=== PATIENT | male | born 1965 | race Caucasian/White ===

== ENCOUNTER 2024-12-08 11:03 | Inpatient (IN) | payer BC ==
[2024-12-08 12:49] VITALS: BMI 39.9
[2024-12-08] MEDS ORDERED: Melatonin 3 MG TAB PO PRN (12:56)
[2024-12-08] MEDS ORDERED: Ketorolac Tromethamine 30 MG (1 mL) VIAL IVP PRN (12:56)
[2024-12-08] MEDS ORDERED: Acetaminophen 325 MG TAB PO PRN (12:56)
[2024-12-08] MEDS ORDERED: Ondansetron PF 4 MG/2 ML Vial IVP PRN (12:56)
[2024-12-08] MEDS ORDERED: PROPOFOL 20 ML ONE (13:09)
[2024-12-08] MEDS ORDERED: Lidocaine 1% PF 5 ML VIAL ONE (13:12)
[2024-12-08] MEDS ORDERED: LevoFLOXacin D5W 500 mg (100 mL) BAG ONE (13:40)
[2024-12-08] MEDS ORDERED: Rocuronium Bromide 10 MG/ML (10ML VIAL) ONE (13:54)
[2024-12-08] MEDS ORDERED: SUCCINYLCHOLINE/SOD CL,ISO/PF 200 MG/10 ML SYRINGE FS ONE (14:32)
[2024-12-08] MEDS ORDERED: Ondansetron PF 4 MG/2 ML Vial ONE (14:32)
[2024-12-08] MEDS ORDERED: SUGAMMADEX SODIUM 200 MG/2 ML VIAL ONE ×2 (14:32→14:39)
[2024-12-08] MEDS ORDERED: Acetaminophen 500 MG TAB PO PRN (14:43)
[2024-12-08] MEDS ORDERED: HYDROcodone/Acetaminophen 5/325 mg Tablet PO PRN (14:43)
[2024-12-08] MEDS ORDERED: Mag-Al 1200 mg/1200 mg/30 ML UDCUP PO PRN (14:43)
[2024-12-08] MEDS ORDERED: Oxybutynin 5 MG TAB PO PRN (14:45)
[2024-12-08 17:34] LABS: INR-International Normal Ratio 1.1; PTT 28.4 sec (22.9-36.1); Prothrombin Time 14.2 sec (12.0-14.7)
[2024-12-08] MEDS: Famotidine 20 MG TAB PO SCH (20:27)
[2024-12-08] MEDS: HYDROcodone/Acetaminophen 5/325 mg Tablet PO PRN (21:59)
[2024-12-09] MEDS: LevoFLOXacin 500 mg/D5W 500 MG in Premix 1 BAG IVPB SCH (05:16)
[2024-12-09 05:42] LABS: #Basophils 0.04 10x3/uL (0.0-0.2); #Eosinophils 0.18 10x3/uL (0.0-0.7); #Monocytes 0.76 10x3/uL (0.11-0.59); #Neutrophils 4.73 10x3/uL (1.40-6.50); %Basophils 0.5 % (0.0-1.0); %Eosinophils 2.5 % (0.0-10.0); %Lymphocytes 21.7 % (21.0-51.0); %Monocytes 10.4 % (0.0-10.0); %Neutrophils 64.6 % (42.0-75.0); Hematocrit 37.2 % (42.0-52.0); Hemoglobin 12.5 g/dL (14.0-18.0); Mean Corpuscular Hemoglobin 31.5 pg (27.0-31.0); Mean Corpuscular Volume 93.7 fL (78.0-98.0); Platelet Count 199 10x3/uL (130-400); Red Blood Cell (RBC) Count 3.97 mill/uL (4.70-6.10); White Blood Cell (WBC) Count 7.32 10x3/uL (4.8-10.8)
[2024-12-09 05:52] LABS: Anion Gap 10 mmol/L (10-20); BUN (Urea Nitrogen) 18 mg/dL (8.4-25.7); Calc. Creatinine Clearance 100 mL/min (70-130); Calcium 8.1 mg/dL (7.8-10.44); Carbon Dioxide 26 mmol/L (22-29); Chloride 107 mmol/L (98-107); Glucose 115 mg/dL (70-105); Potassium 3.7 mmol/L (3.5-5.1); Sodium 139 mmol/L (136-145)
[2024-12-09] MEDS: Lisinopril 20 MG TAB PO SCH (07:51)
[2024-12-09 13:12] VITALS: BP 120/83; TEMP 98
[2024-12-09 16:43] LABS: Bacteria/HPF None Seen HPF (None Seen); Glucose, Urine (Dipstick) Normal (Negative); Leukocyte Negative Leu/uL (Negative); Protein, Urine (Dipstick) 30 mg/dL (Neg-Trace); RBC/HPF Greater than 50 HPF (0-3); Specific Gravity, Urine 1.007 (1.002-1.036)
[2024-12-09] MEDS ORDERED: Famotidine 20 MG TAB PO SCH (21:00)
== END 2024-12-09 18:34 | disposition home or self-care (01) | DRG 661 ==
LOC: T4-A 12:19
PROVIDERS: ADMIT Internal Medicine; ATTEND Internal Medicine
PROC: 0T778DZ Dilation of Left Ureter with Intraluminal Device, Via Natural or Artificial Opening Endoscopic (ICD-10-PCS; principal; 2024-12-08)
PROC: BT1F1ZZ Fluoroscopy of Left Kidney, Ureter and Bladder using Low Osmolar Contrast (ICD-10-PCS; 2024-12-08)
DX: N13.2 Hydronephrosis with renal and ureteral calculous obstruction (principal); N17.9 Acute kidney failure, unspecified; I10 Essential (primary) hypertension; M17.0 Bilateral primary osteoarthritis of knee; Z98.52 Vasectomy status; Z98.890 Other specified postprocedural states; Z90.79 Acquired absence of other genital organ(s)
CPT/HCPCS: 36415; 74420; 80048; 81001; 85025; 85610; 85730; 87086; C1769; C2617; J1956; J2405; J2704; J3010; J7030

== ENCOUNTER 2024-12-20 12:05 | Outpatient (CLI) | payer BC ==
[2024-12-20 13:29] LABS: #Basophils 0.07 10x3/uL (0.0-0.2); #Eosinophils 0.35 10x3/uL (0.0-0.7); #Monocytes 0.63 10x3/uL (0.11-0.59); #Neutrophils 4.48 10x3/uL (1.40-6.50); %Basophils 1.0 % (0.0-1.0); %Eosinophils 5.0 % (0.0-10.0); %Lymphocytes 20.7 % (21.0-51.0); %Monocytes 9.0 % (0.0-10.0); %Neutrophils 63.7 % (42.0-75.0); Hematocrit 42.9 % (42.0-52.0); Hemoglobin 13.9 g/dL (14.0-18.0); Mean Corpuscular Hemoglobin 30.2 pg (27.0-31.0); Mean Corpuscular Volume 93.3 fL (78.0-98.0); Platelet Count 320 10x3/uL (130-400); Red Blood Cell (RBC) Count 4.60 mill/uL (4.70-6.10); White Blood Cell (WBC) Count 7.02 10x3/uL (4.8-10.8)
[2024-12-20 13:46] LABS: Anion Gap 15 mmol/L (10-20); BUN (Urea Nitrogen) 15 mg/dL (8.4-25.7); Calc. Creatinine Clearance 0 mL/min (70-130); Calcium 9.2 mg/dL (7.8-10.44); Carbon Dioxide 26 mmol/L (22-29); Chloride 104 mmol/L (98-107); Glucose 103 mg/dL (70-105); INR-International Normal Ratio 1.1; PTT 24.6 sec (22.9-36.1); Potassium 4.5 mmol/L (3.5-5.1); Prothrombin Time 14.0 sec (12.0-14.7); Sodium 140 mmol/L (136-145)
[2024-12-20 14:33] LABS: Bacteria/HPF None Seen HPF (None Seen); Glucose, Urine (Dipstick) Normal (Negative); Leukocyte Negative Leu/uL (Negative); Protein, Urine (Dipstick) Negative (Neg-Trace); RBC/HPF 0-3 HPF (0-3); Specific Gravity, Urine 1.011 (1.002-1.036); WBC/HPF 0-3 HPF (0-3)
== END 2024-12-20 12:06 | disposition home or self-care (01) ==
LOC: LABBT 12:05
PROVIDERS: ATTEND Urology
DX: Z01.818 Encounter for other preprocedural examination (principal); N20.0 Calculus of kidney
CPT/HCPCS: 80048; 81001; 85025; 85610; 85730; 87086; 93005; 93010

== ENCOUNTER 2025-01-03 08:53 | Day surgery (SDC) | payer BC ==
[2024-12-20 12:30] VITALS: BMI 39.9
[2025-01-03] MEDS ORDERED: LevoFLOXacin D5W 500 mg (100 mL) BAG ONE (11:50)
[2025-01-03] MEDS ORDERED: Rocuronium Bromide 10 MG/ML (10ML VIAL) ONE (12:48)
[2025-01-03] MEDS ORDERED: PROPOFOL 20 ML ONE ×2 (12:48→14:17)
[2025-01-03] MEDS ORDERED: fentaNYL PF 100 MCG/2 ML SYRINGE ONE (13:30)
[2025-01-03] MEDS ORDERED: Ondansetron PF 4 MG/2 ML Vial ONE (13:58)
[2025-01-03] MEDS ORDERED: SUGAMMADEX SODIUM 200 MG/2 ML VIAL ONE (13:58)
== END 2025-01-03 17:30 | disposition home or self-care (01) ==
LOC: SDC 08:53
PROVIDERS: ATTEND Urology
PROC: 0T778DZ Dilation of Left Ureter with Intraluminal Device, Via Natural or Artificial Opening Endoscopic (ICD-10-PCS; principal; 2025-01-03)
DX: N13.2 Hydronephrosis with renal and ureteral calculous obstruction (principal); N35.912 Unspecified bulbous urethral stricture, male; N40.0 Benign prostatic hyperplasia without lower urinary tract symptoms; I10 Essential (primary) hypertension; Z98.52 Vasectomy status; Z98.890 Other specified postprocedural states
CPT/HCPCS: 74018; 74420; C1758; C1769; C2617; J1100; J1956; J2250; J2405; J2704; Q9967